=== PATIENT | male | born 1940 | race Caucasian/White ===

== ENCOUNTER 2023-12-17 15:32 | Emergency (ER) | payer MEDICARE ==
[~2023-12-17] VITALS: Ht 170.2 cm; Wt 72.6 kg
[2023-12-17] MEDS ORDERED: ACETAMINOPHEN ES 500 MG TABLET ONE (16:46)
[2023-12-17] MEDS: ACETAMINOPHEN ES 500 MG TABLET PO ONE (17:00)
[2023-12-17 18:45] VITALS: BP 140/103; TEMP 98.3; O2SAT 94
== END 2023-12-17 18:46 | disposition home or self-care (01) ==
LOC: ER 15:32
DX: M25.551 Pain in right hip (principal); M79.604 Pain in right leg; I10 Essential (primary) hypertension; W01.0XXA Fall on same level from slipping, tripping and stumbling without subsequent striking against object, initial encounter; Y93.89 Activity, other specified; Y92.89 Other specified places as the place of occurrence of the external cause; Y99.8 Other external cause status
CPT/HCPCS: 73700-TC